=== PATIENT | male | born 1950 | race Caucasian/White ===

== ENCOUNTER 2023-05-23 07:46 | Day surgery (SDC) | payer OTHER ==
[2023-05-20 09:51] VITALS: BMI 19.6
[2023-05-23 10:00] VITALS: RESP 18; TEMP 96.4
[2023-05-23 10:11] VITALS: BP 100/50; PULSE 57
== END 2023-05-23 10:24 | disposition home or self-care (01) ==
LOC: FASU-ENDO 07:46
PROVIDERS: ATTEND Internal Medicine Gastroenterology
PROC: 0DBL8ZX Excision of Transverse Colon, Via Natural or Artificial Opening Endoscopic, Diagnostic (ICD-10-PCS; principal; 2023-05-23 09:28)
DX: Z12.11 Encounter for screening for malignant neoplasm of colon (principal); K63.5 Polyp of colon; K57.30 Diverticulosis of large intestine without perforation or abscess without bleeding
CPT/HCPCS: 88305-TC